=== PATIENT | female | born 1955 | race African-American/Black ===

== ENCOUNTER 2017-01-28 19:03 | Emergency (ER) | payer MEDICAID, OTHER ==
[~2017-01-28] VITALS: Ht 160 cm; Wt 96.0 kg
[2017-01-29] MEDS ORDERED: SODIUM CHLORIDE 0.9% 1,000 ML IV ONE (00:04)
[2017-01-29 00:13] LABS: BASOPHILS % 0.9 % (0.0-2.0); HEMOGLOBIN. 10.2 g/dL (12.0-16.0); MEAN CORPUSCULAR HEMOGLOBIN 25.6 pg (28.0-32.0); MEAN CORPUSCULAR VOLUME 80.6 fL (81.0-99.0); MEAN PLATELET VOLUME 7.8 fl (7.4-10.4); MONOCYTES % 5.7 % (2.0-8.0); NEUTROPHILS % 64.4 % (40.0-76.0); PLATELET 387 x1000/uL (130-400); RED BLOOD CELL COUNT 3.97 mill/uL (4.2-5.4); RED CELL DISTRIBUTION WIDTH 16.9 % (11.6-14.6)
[2017-01-29] MEDS ORDERED: MORPHINE SULFATE 4 MG/ML CPJ (NOT FOR IM USE) IV ONE (00:15)
[2017-01-29] MEDS ORDERED: ONDANSETRON HCL 4MG/2ML VIAL IM ONE (00:15)
[2017-01-29 00:22] LABS: PARTIAL THROMBOPLASTIN TIME 23.2 sec (24.0-34.0); PROTHROMBIN TIME 10.3 sec
[2017-01-29 00:24] LABS: CHLORIDE 100 mEq/L (98-107)
[2017-01-29 00:33] LABS: CARBON DIOXIDE 31 mEq/L (21-32)
[2017-01-29 00:58] LABS: CLARITY URINE CLEAR (CLEAR); COLOR URINE YELLOW (YELLOW); GLUCOSE URINE 3+ (NEGATIVE); KETONES URINE NEGATIVE (NEGATIVE); LEUKOCYTE ESTERASE URINE NEGATIVE (NEGATIVE); NITRITE URINE NEGATIVE (NEGATIVE); OCCULT BLOOD URINE NEGATIVE (NEGATIVE); PROTEIN URINE NEGATIVE (NEGATIVE); SPECIFIC GRAVITY URINE 1.021 (1.005-1.030); UROBILINOGEN URINE 0.2 E.U./dL (0.2-1.0)
[2017-01-29 09:33] VITALS: BP 138/68
== END 2017-01-29 09:40 | disposition home or self-care (01) ==
LOC: ER 19:04
DX: M31.6 Other giant cell arteritis (principal); E11.9 Type 2 diabetes mellitus without complications; I77.6 Arteritis, unspecified; J45.909 Unspecified asthma, uncomplicated; N63 Unspecified lump in breast; K56.60 Unspecified intestinal obstruction; I51.7 Cardiomegaly; I10 Essential (primary) hypertension; Z90.710 Acquired absence of both cervix and uterus; Z88.0 Allergy status to penicillin; Z79.4 Long term (current) use of insulin
CPT/HCPCS: 36415; 74176; 80053; 81001; 82962; 83605; 83690; 85025; 85610; 85730; 93005; 96361; 96372; 96374; 99285; J2270; J2405; J7030; Z7610

== ENCOUNTER 2017-03-21 19:27 | Emergency (ER) | payer OTHER ==
[~2017-03-21] VITALS: Ht 154.9 cm; Wt 105.0 kg
[2017-03-22] MEDS ORDERED: TRAMADOL 50MG TABLET PO ONE (01:00)
[2017-03-22 01:14] LABS: CLARITY URINE CLEAR (CLEAR); COLOR URINE YELLOW (YELLOW); GLUCOSE URINE NEGATIVE (NEGATIVE); KETONES URINE NEGATIVE (NEGATIVE); LEUKOCYTE ESTERASE URINE NEGATIVE (NEGATIVE); NITRITE URINE NEGATIVE (NEGATIVE); OCCULT BLOOD URINE NEGATIVE (NEGATIVE); PROTEIN URINE NEGATIVE (NEGATIVE); SPECIFIC GRAVITY URINE 1.017 (1.005-1.030); UROBILINOGEN URINE 0.2 E.U./dL (0.2-1.0)
[2017-03-22 02:30] VITALS: BP 145/79
== END 2017-03-22 02:30 | disposition home or self-care (01) ==
LOC: ER 22:18
DX: M54.5 Low back pain (principal); M19.90 Unspecified osteoarthritis, unspecified site; J45.909 Unspecified asthma, uncomplicated; E11.9 Type 2 diabetes mellitus without complications; I10 Essential (primary) hypertension; R06.81 Apnea, not elsewhere classified; Z90.710 Acquired absence of both cervix and uterus; Z88.0 Allergy status to penicillin; Z88.8 Allergy status to other drugs, medicaments and biological substances
CPT/HCPCS: 81003; 82962; 99283